=== PATIENT | female | born 1970 | race Two or more races ===

== ENCOUNTER 2021-06-10 17:20 | Emergency (ER) | payer OTHER ==
[~2021-06-10] VITALS: Ht 175.3 cm; Wt 80.0 kg
[2021-06-10 17:52] VITALS: BP 180/102
--- NOTE | 2021-06-10 18:13 | PHYS DOC ---
Past History Past Surgical History: Other General Adult EDM: Chief Complaint: VISION PROBLEM HPI: HPI: 50-year-old female presents with left eye visual disturbance. She went to her eye doctor today who reportedly did temporal artery biopsy full eye exam. She noticed ruptured vessels in the eye and is concerned for stroke in or near the ophthalmic artery. They advise she immediately come to the emergency room. Patient has no other specific complaints other than left-sided occipital headache. Review of Systems: Review of Systems: Constitutional: Denies fever or chills Eyes: Visual disturbance left eye HENT: Denies nasal congestion or sore throat Respiratory: Denies cough or shortness of breath Cardiovascular: Denies chest pain or edema GI: Denies abdominal pain, nausea, vomiting, bloody stools or diarrhea : Denies dysuria Musculoskeletal: Denies back pain or joint pain Integument: Denies rash Neurologic: Headache. Denies focal weakness or sensory changes Endocrine: Denies polyuria or polydipsia Lymphatic: Denies swollen glands Psychiatric: Denies depression or anxiety Physical Exam: PE: Constitutional: Well developed, well nourished, no acute distress, non-toxic appearance. [] HENT: Normocephalic, atraumatic, bilateral external ears normal, oropharynx moist, no oral exudates, nose normal. [] Eyes: PERRLA, EOMI, conjunctiva normal, no discharge. [] Neck: Normal range of motion, no tenderness, supple, no stridor. [] Cardiovascular:Heart rate regular rhythm, no murmur [] Lungs & Thorax: Bilateral breath sounds clear to auscultation [] Abdomen: Bowel sounds normal, soft, no tenderness, no masses, no pulsatile masses. [] Skin: Warm, dry, no erythema, no rash. [] Back: No tenderness, no CVA tenderness. [] Extremities: No tenderness, no cyanosis, no clubbing, ROM intact, no edema. [] Neurologic: Alert and oriented X 3, normal motor function, normal sensory function, no focal deficits noted. [] Psychologic: Affect normal, judgement normal, mood normal. [] Current Patient Data: Vital Signs: Vital Signs Date Time Temp Pulse Resp B/P (MAP) Pulse Ox O2 Delivery O2 Flow Rate FiO2 06/10/21 17:52 180/102 (128) 99 Room Air EKG: EKG: [] Radiology/Procedures: Radiology/Procedures: [] Impressions: STUDY: CT head without contrast INDICATION: Vision changes. Headache. COMPARISON: None. TECHNIQUE: Axial CT imaging through the head without the use of intravenous contrast. Sagittal and coronal reformats were obtained. One or more of the following individualized dose reduction techniques were utilized for this examination: 1. Automated exposure control 2. Adjustment of the mA and/or kV according to patient size 3. Use of iterative reconstruction technique. FINDINGS: No acute intracranial hemorrhage. Billy-white matter differentiation is maintained. No localized mass effect, midline shift or hydrocephalus. Anatomic variation cavum vergae. 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 Normally located cerebellar tonsils. Well delineated basilar cisterns. Unremarkable CT appearance of the globes and retrobulbar soft tissues. Symmetric lens positioning and posterior chamber density Intact calvarium. Normally aerated mastoid air cells and partially imaged paranasal sinuses. IMPRESSION: 1. No acute intracranial abnormality by CT. 2. Incidental developmental variation as discussed above. Electronically signed by: DAVID ACKERMAN MD (06/10/2021 8:13 PM) [facility] DICTATED AND SIGNED BY: DAVID ACKERMAN MD DATE: 06/10/212001 CC: MICKEY LARSEN DO; HYACINTH MCHUGH MD ~MTH0 0 STUDY: CT angiography of the head and neck INDICATION: Blurred vision. Headache. COMPARISON: No prior CT angiogram. TECHNIQUE: Axial CT imaging of the head and neck utilizing angiography protocol and performed after the intravenous administration of 74 cc contrast. Multiplanar reformats and 3D MIP acquisitions were obtained. Encountered areas of stenosis are measured per NASCET criteria. One or more of the following individualized dose reduction techniques were utilized for this examination: 1. Automated exposure control 2. Adjustment of the mA and/or kV according to patient size 3. Use of iterative reconstruction technique. FINDINGS: CTA NECK: Limited study on account of bolus timing. Arch/Proximal Great Vessels: Nonaneurysmal visualized aorta. No evidence for relevant stenosis of the great vessel origins. There may be an LAD coronary artery stent. Carotid Bifurcation/Cervical ICA: No flow-limiting stenosis of the cervical ICAs. Vertebral Arteries: Maintained contrast opacification of the extracranial right vertebral artery. Diminutive caliber of the left vertebral artery appears to be developmental in nature CTA HEAD: Posterior Circulation: Right larger than left intracranial vertebral arteries with maintained contrast opacification. The basilar artery is diminutive but patent. Right larger than left posterior communicating arteries the central posterior cerebral artery segments are patent. Limited evaluation past P2. Anterior Circulation: Faint carotid siphon calcific atherosclerosis. No apparent stenosis. No central occlusion or flow-limiting stenosis of the middle or anterior cerebral arteries. Limited evaluation more distal. Veins: Not well evaluated. MISCELLANEOUS: Status post ACDF at C5-C7. Intrinsically narrowed cervical canal is moderate stenosis at multiple levels. IMPRESSION: CT Angio Neck: 1. The study is limited on account of bolus timing. No definitive flow-limiting stenosis or dissection of the extracranial carotid or vertebral arteries. Small caliber of the left vertebral artery is favored to be developmental in etiology. 2. Intrinsically narrowed cervical canal with suspected at least moderate central canal stenosis at multiple levels but not fully evaluated. Intact and well fixated ACDF construct from C5 through C7. CT Angio Head: 1. No large vessel occlusion is identified. The peripheral intracranial arteries are not fully evaluated due to bolus timing. Again the small caliber of the intracranial left vertebral artery is favored most likely developmental and note is made that there are patent bilateral posterior communicating arteries. Electronically signed by: DAVID ACKERMAN MD (06/10/2021 8:23 PM) [facility] DICTATED AND SIGNED BY: DAVID ACKERMAN MD DATE: 06/10/212013 CC: MICKEY LARSEN DO; HYACINTH MCHUGH MD ~MTH0 0 Heart Score: C/O Chest Pain: N/A Risk Factors: Risk Factors: DM, Current or recent (<one month) smoker, HTN, HLP, family history of CAD, obesity. Risk Scores: Score 0 - 3: 2.5% MACE over next 6 weeks - Discharge Home Score 4 - 6: 20.3% MACE over next 6 weeks - Admit for Clinical Observation Score 7 - 10: 72.7% MACE over next 6 weeks - Early Invasive Strategies Course & Med Decision Making: Course & Med Decision Making Pertinent Labs and Imaging studies reviewed. (See chart for details) The patient's head CT and CT angio of the head are negative for acute findings. MRI be more sensitive for the patient's possible problem. I have offered to transfer the patient but she is aware it will take hours to days. She would prefer to be discharged and she will have her family drive her to another facility with full stroke care and MRI capability. She is stable for discharge at this time. [] [place] Disclaimer: Roxie Disclaimer: This electronic medical record was generated, in whole or in part, using a voice recognition dictation system. Departure Departure: Impression: Primary Impression: Visual disturbance Disposition: HOME / SELF CARE / HOMELESS Condition: STABLE Referrals: HYACINTH MCHUGH MD (PCP) MICKEY LARSEN DO Jun 10, 2021 18:13
[2021-06-10] MEDS ORDERED: IOHEXOL 350 MG/ML 100 ML VIAL. IV ONE (18:15)
[2021-06-10 19:05] LABS: BASO % 0 % (0-3); EOS # 0.1 x10^3/uL (0.0-0.7); EOS % 2 % (0-3); HEMATOCRIT 46.9 % (36.0-47.0); HEMOGLOBIN 15.7 g/dL (12.0-15.5); LYMPH # 2.5 x10^3/uL (1.0-4.8); LYMPH % 28 % (24-48); MEAN CORPUSCULAR HEMOGLOBIN 28 pg (25-35); MEAN CORPUSCULAR HGB CONC 34 g/dL (31-37); MEAN CORPUSCULAR VOLUME 84 fL (79-100); MONO # 0.5 x10^3/uL (0.0-1.1); MONO % 5 % (0-9); NEUT % 65 % (31-73); PLATELET COUNT 241 x10^3/uL (140-400); RED BLOOD COUNT 5.56 x10^6/uL (3.50-5.40); RED CELL DISTRIBUTION WIDTH 14.3 % (11.5-14.5); WHITE BLOOD COUNT 9.1 x10^3/uL (4.0-11.0)
[2021-06-10 19:07] LABS: CALCIUM 9.1 mg/dL (8.5-10.1); CREATININE 0.7 mg/dL (0.6-1.0); GFR 88.9; POTASSIUM 4.6 mmol/L (3.5-5.1)
[2021-06-10 19:12] LABS: ALBUMIN 3.8 g/dL (3.4-5.0); TOTAL BILIRUBIN 0.4 mg/dL (0.2-1.0); TOTAL PROTEIN 7.7 g/dL (6.4-8.2)
--- NOTE | 2021-06-10 20:16 | RAD ---
STUDY: CT head without contrast INDICATION: Vision changes. Headache. COMPARISON: None. TECHNIQUE: Axial CT imaging through the head without the use of intravenous contrast. Sagittal and co aishwarya reformats were obtained. One or more of the following individualized dose reduction techniques were utilized for this examinat ion: 1. Automated exposure control 2. Adjustment of the mA and/or kV according to patient size 3. Use of iterative reconstruction technique. FINDINGS: No acute intracranial hemorrhage. Billy-white matter differentiation is maintained. No localized mass effect, midline shift or hydrocephalus. Anatomic variation cavum vergae. 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 Normally located cerebellar tonsils. Well delineated basilar cisterns. Unremarkable CT appearance of the globes and retrobulbar soft tissues. Symmetric lens positioning and posterior chamber density Intact calvarium. Normally aerated mastoid air cells and partially imaged paranasal sinuses. IMPRESSION: 1. No acute intracranial abnormality by CT. 2. Incidental developmental variation as discussed above. Electronically signed by: DAVID ACKERMAN MD (06/10/2021 8:13 PM) [facility]
--- NOTE | 2021-06-10 20:26 | RAD ---
STUDY: CT angiography of the head and neck INDICATION: Blurred vision. Headache. COMPARISON: No prior CT angiogram. TECHNIQUE: Axial CT imaging of the head and neck utilizing angiography protocol and performed after t he intravenous administration of 74 cc contrast. Multiplanar reformats and 3D MIP acquisitions were o btained. Encountered areas of stenosis are measured per NASCET criteria. One or more of the following individualized dose reduction techniques were utilized for this examinat ion: 1. Automated exposure control 2. Adjustment of the mA and/or kV according to patient size 3. Use of iterative reconstruction technique. FINDINGS: CTA NECK: Limited study on account of bolus timing. Arch/Proximal Great Vessels: Nonaneurysmal visualized aorta. No evidence for relevant stenosis of the great vessel origins. There may be an LAD coronary artery stent. Carotid Bifurcation/Cervical ICA: No flow-limiting stenosis of the cervical ICAs. Vertebral Arteries: Maintained contrast opacification of the extracranial right vertebral artery. Dim inutive caliber of the left vertebral artery appears to be developmental in nature CTA HEAD: Posterior Circulation: Right larger than left intracranial vertebral arteries with maintained contras t opacification. The basilar artery is diminutive but patent. Right larger than left posterior commun icating arteries the central posterior cerebral artery segments are patent. Limited evaluation past P 2. Anterior Circulation: Faint carotid siphon calcific atherosclerosis. No apparent stenosis. No central occlusion or flow-limiting stenosis of the middle or anterior cerebral arteries. Limited evaluation more distal. Veins: Not well evaluated. MISCELLANEOUS: Status post ACDF at C5-C7. Intrinsically narrowed cervical canal is moderate stenosis at multiple lev els. IMPRESSION: CT Angio Neck: 1. The study is limited on account of bolus timing. No definitive flow-limiting stenosis or dissecti on of the extracranial carotid or vertebral arteries. Small caliber of the left vertebral artery is f avored to be developmental in etiology. 2. Intrinsically narrowed cervical canal with suspected at least moderate central canal stenosis at multiple levels but not fully evaluated. Intact and well fixated ACDF construct from C5 through C7. CT Angio Head: 1. No large vessel occlusion is identified. The peripheral intracranial arteries are not fully evalua jesús due to bolus timing. Again the small caliber of the intracranial left vertebral artery is favored most likely developmental and note is made that there are patent bilateral posterior communicating a rteries. Electronically signed by: DAVID ACKERMAN MD (06/10/2021 8:23 PM) [facility]
== END 2021-06-10 21:00 | disposition home or self-care (01) ==
LOC: ER 17:20
DX: H53.8 Other visual disturbances (principal); R51.9 Headache, unspecified
CPT/HCPCS: 36415; 70450; 70496; 70498; 80053; 85025; 99285; Q9967; 99284

== ENCOUNTER → 2021-08-27 | Outpatient (CLI) | payer OTHER ==
[2021-08-27 16:05] LABS: BASO % 0 % (0-3); CALCIUM 8.5 mg/dL (8.5-10.1); CREATININE 0.8 mg/dL (0.6-1.0); EOS # 0.1 x10^3/uL (0.0-0.7); EOS % 2 % (0-3); GFR 75.9; HEMATOCRIT 43.4 % (36.0-47.0); HEMOGLOBIN 14.2 g/dL (12.0-15.5); LYMPH # 3.2 x10^3/uL (1.0-4.8); LYMPH % 37 % (24-48); MEAN CORPUSCULAR HEMOGLOBIN 28 pg (25-35); MEAN CORPUSCULAR HGB CONC 33 g/dL (31-37); MEAN CORPUSCULAR VOLUME 86 fL (79-100); MONO # 0.4 x10^3/uL (0.0-1.1); MONO % 5 % (0-9); NEUT # 4.9 x10^3uL (1.8-7.7); NEUT % 56 % (31-73); PLATELET COUNT 241 x10^3/uL (140-400); POTASSIUM 3.9 mmol/L (3.5-5.1); RED BLOOD COUNT 5.04 x10^6/uL (3.50-5.40); RED CELL DISTRIBUTION WIDTH 14.5 % (11.5-14.5); WHITE BLOOD COUNT 8.7 x10^3/uL (4.0-11.0)
[2021-08-28 01:07] LABS: HEMOGLOBIN A1C 6.5 % (4.8-5.6)
[2021-08-28 18:13] LABS: FREE T4 0.79 ng/dL (0.76-1.46); THYROID STIM HORMONE (TSH) 4.678 uIU/mL (0.358-3.740)
== END ==
LOC: LAB 14:15
PROVIDERS: ATTEND Family Medicine
DX: R00.8 Other abnormalities of heart beat (principal); I10 Essential (primary) hypertension; F41.0 Panic disorder [episodic paroxysmal anxiety]; R73.9 Hyperglycemia, unspecified
CPT/HCPCS: 80048; 82384; 83036; 84439; 84443; 85025; 85379

== ENCOUNTER → 2021-09-05 | Outpatient (CLI) | payer OTHER ==
[2021-09-05 13:46] LABS: BASO % 0 % (0-3); EOS # 0.2 x10^3/uL (0.0-0.7); EOS % 2 % (0-3); HEMATOCRIT 43.2 % (36.0-47.0); HEMOGLOBIN 14.6 g/dL (12.0-15.5); LYMPH # 2.6 x10^3/uL (1.0-4.8); LYMPH % 32 % (24-48); MEAN CORPUSCULAR HEMOGLOBIN 29 pg (25-35); MEAN CORPUSCULAR HGB CONC 34 g/dL (31-37); MEAN CORPUSCULAR VOLUME 85 fL (79-100); MONO # 0.4 x10^3/uL (0.0-1.1); MONO % 6 % (0-9); NEUT # 4.8 x10^3uL (1.8-7.7); NEUT % 60 % (31-73); PLATELET COUNT 253 x10^3/uL (140-400); RED BLOOD COUNT 5.09 x10^6/uL (3.50-5.40); RED CELL DISTRIBUTION WIDTH 14.1 % (11.5-14.5); WHITE BLOOD COUNT 8.1 x10^3/uL (4.0-11.0)
[2021-09-05 14:32] LABS: ALBUMIN 3.5 g/dL (3.4-5.0); CALCIUM 8.9 mg/dL (8.5-10.1); CREATININE 0.8 mg/dL (0.6-1.0); GFR 75.9; POTASSIUM 4.3 mmol/L (3.5-5.1); TOTAL BILIRUBIN 0.6 mg/dL (0.2-1.0); TOTAL PROTEIN 6.9 g/dL (6.4-8.2)
== END ==
LOC: LAB 13:05
PROVIDERS: ATTEND Family Medicine
DX: R07.9 Chest pain, unspecified (principal); I48.0 Paroxysmal atrial fibrillation; F41.1 Generalized anxiety disorder; I49.3 Ventricular premature depolarization; R09.02 Hypoxemia
CPT/HCPCS: 36415; 80053; 82550; 83880; 85025; 85379

== ENCOUNTER → 2021-09-10 | Outpatient (CLI) | payer OTHER ==
[2021-09-10 16:04] LABS: BASO # 0.1 x10^3/uL (0.0-0.2); BASO % 1 % (0-3); EOS # 0.2 x10^3/uL (0.0-0.7); EOS % 2 % (0-3); HEMATOCRIT 44.5 % (36.0-47.0); HEMOGLOBIN 14.8 g/dL (12.0-15.5); LYMPH # 2.9 x10^3/uL (1.0-4.8); LYMPH % 38 % (24-48); MEAN CORPUSCULAR HEMOGLOBIN 28 pg (25-35); MEAN CORPUSCULAR HGB CONC 33 g/dL (31-37); MEAN CORPUSCULAR VOLUME 85 fL (79-100); MONO # 0.4 x10^3/uL (0.0-1.1); MONO % 5 % (0-9); NEUT # 4.2 x10^3uL (1.8-7.7); NEUT % 54 % (31-73); PLATELET COUNT 258 x10^3/uL (140-400); RED BLOOD COUNT 5.23 x10^6/uL (3.50-5.40); RED CELL DISTRIBUTION WIDTH 14.1 % (11.5-14.5); WHITE BLOOD COUNT 7.8 x10^3/uL (4.0-11.0)
[2021-09-10 16:17] LABS: ALBUMIN 3.5 g/dL (3.4-5.0); CALCIUM 8.7 mg/dL (8.5-10.1); CREATININE 0.7 mg/dL (0.6-1.0); GFR 88.6; POTASSIUM 4.2 mmol/L (3.5-5.1); TOTAL BILIRUBIN 0.5 mg/dL (0.2-1.0); TOTAL PROTEIN 6.9 g/dL (6.4-8.2)
== END ==
LOC: LAB 14:54
PROVIDERS: ATTEND Internal Medicine Interventional Cardiology
DX: I25.10 Atherosclerotic heart disease of native coronary artery without angina pectoris (principal); R94.39 Abnormal result of other cardiovascular function study; I25.83 Coronary atherosclerosis due to lipid rich plaque
CPT/HCPCS: 36415; 80053; 85025